=== PATIENT | male | born 1955 | race Caucasian/White ===

== ENCOUNTER 2021-04-25 00:32 | Emergency (ER) | payer MEDICARE, MEDICAID, SELFPAY ==
[2021-04-25 00:43] VITALS: BP 157/82; PULSE 90; RESP 15; TEMP 36.4; O2SAT 95; BMI 28.7
--- NOTE | 2021-04-25 00:55 | W.ED.EXTPRO ---
HPI - Extremity Problem General: Chief complaint: Extremity Problem,Nontraumatic Stated complaint: hole in side of left foot/r foot issue Time Seen by Provider: 04/25/21 00:55 History of Present Illness: HPI Narrative: Patient has really bad varicose veins. Patient came in tonight due to one of them rupturing and bleeding. Patient came in due to difficulty getting the bleeding to stop. Upon evaluation patient had a clean dry dressing without signs of bleeding. Bleeding started this evening at home when he was getting ready for bed. Review of Systems General: Reports: 10 or more systems reviewed and unremarkable except in HPI and below Skin/Breast: Reports: other (Ruptured varicose vein left foot) Physical Exam Const: COMMON NORMALS: no acute distress and patient oriented x3 GENERAL APPEARANCE: cooperative HENMT: COMMON NORMALS: normocephalic and Normal external nose present HEAD & SCALP: normal to inspection and normocephalic NOSE: Normal external nose present Eye: GENERAL EYE: appearance normal, both eyes and all related structures Neck/C-Spine: COMMON NORMALS: full ROM Chest: COMMONS NORMALS: normal inspection of the chest Resp: COMMON NORMALS: normal respiratory effort EFFORT & INSPECTION: Yes able to speak in complete sentences Cardio: COMMON NORMALS: regular rate and regular rhythm RATE: regular rate RHYTHM: regular rhythm GI: COMMON NORMALS: non-tender Extremity: NARRATIVE EXTREMITY EXAM: Multiple varicosities, lower extremity edema, varicosity that was bleeding has ceased bleeding Neuro: COMMON NORMALS: patient oriented x3 and moves all extremities Psych: COMMON NORMALS: mental status grossly normal and cooperative Skin: COMMON NORMALS: no rashes or lesions noted GENERAL SKIN EXAM: no rashes or lesions noted Course Vital Signs: Vital signs: Vital Signs Temperature 97.6 F 04/25/21 00:43 Pulse Rate 90 04/25/21 00:43 Respiratory Rate 15 04/25/21 00:43 Blood Pressure 157/82 04/25/21 00:43 Pulse Oximetry 95 04/25/21 00:43 MDM - Extremity (Nontraumatic) MDM Narrative: Medical decision making narrative: Patient comes in tonight for complaints of bleeding varicose vein. On exam bleeding has stopped and the wound has sealed off. No signs of redness or heat is noted to the area. Differential diagnosis includes anticoagulation, cellulitis, ruptured varicose vein, stasis dermatitis. Since bleeding is stopped recommended that we keep the pressure dressing on it for the next 24 hours. Patient was recommended to elevate the wound and keep off it for the next day. Patient reported understanding and agreed to plan. Discharge Plan Discharge Patient Disposition: Home Clinical Impression: Ruptured varicose vein Condition: Stable Discharge Orders: Discharge ED (Routine); Ordered 04/25/21 Ordered By: Henri Arriaga Discharge Diet: Usual diet Discharge Activity: Increase activity as tolerated Patient Instructions: Varicose Veins (ED), Opioid Safety Activity Restrictions/Additional Instructions: Home and elevate leg is much as possible for the next 24 hours. Wear compression stockings. Use an elastic bandage. Monitor site for signs of infection such as redness and heat. Follow-up with primary care as needed. Return to the emergency department for new concerns. Coding Level of Care Code ED Pharmacy Assistant for [facility]
--- NOTE | 2021-04-25 01:10 | PC.NURSE ---
Telfa dressing placed on the inside of left foot and wrapped with kay wrap.
[2021-04-25 01:11] VITALS: RESP 15; TEMP 36.4; O2SAT 95
== END 2021-04-25 01:12 | disposition home or self-care (01) ==
PROVIDERS: Emergency Provider Nurse Practitioner Family
DX: I83.892 Varicose veins of left lower extremity with other complications (principal)
CPT/HCPCS: 99282